=== PATIENT | male | born 1990 | race Caucasian/White ===

== ENCOUNTER 2024-11-20 17:37 | Emergency (ER) | payer SELFPAY ==
[2024-11-20 20:46] LABS: APPEARANCE,URINE CLEAR; COLOR,URINE YELLOW
[2024-11-20 20:47] LABS: BILIRUBIN,URINE NEGATIVE; GLUCOSE,URINE NEGATIVE; KETONES,URINE NEGATIVE; LEUKOCYTE ESTERASE,URINE NEGATIVE (NEGATIVE); NITRITE,URINE NEGATIVE (NEGATIVE); OCCULT BLOOD,URINE NEGATIVE; PH,URINE 6.5; PROTEIN,URINE NEGATIVE; UROBILINOGEN,URINE 0.2 (<1.0)
[2024-11-20] MEDS: Ibuprofen 600 MG Tab PO ONE (21:14)
[2024-11-20] MEDS: Acetaminophen 500 MG Tab PO ONE (21:15)
[2024-11-20 22:13] LABS: C. TRACHOMATIS BY PCR NOT DETECTED; N. GONORRHOEAE BY PCR NOT DETECTED
== END 2024-11-20 22:49 | disposition home or self-care (01) ==
LOC: MW.ED 17:37
DX: M25.511 Pain in right shoulder (principal); Z20.2 Contact with and (suspected) exposure to infections with a predominantly sexual mode of transmission; F17.210 Nicotine dependence, cigarettes, uncomplicated; Z75.8 Other problems related to medical facilities and other health care; Z88.1 Allergy status to other antibiotic agents
CPT/HCPCS: 36415; 73030; 81003; 87389; 87491; 87591; 99283; A9270